=== PATIENT | male | born 1970 | race Caucasian/White ===

== ENCOUNTER 2018-07-08 08:12 | Inpatient (IN) | payer MEDICAID ==
[~2018-07-08] VITALS: Ht 182.9 cm; Wt 102.1 kg
--- NOTE | 2018-07-08 08:22 | NUR ---
Dr Witt at the bedside for MSE.
[2018-07-08] MEDS ORDERED: ONDANSETRON 4 MG/2 ML VIAL IV ONE ×2 (09:15→15:39)
[2018-07-08] MEDS ORDERED: METRONIDAZOLE 500 MG/NS 100 ML PIGGYBACK IV ONE (09:15)
[2018-07-08] MEDS ORDERED: MORPHINE SULFATE 2 MG/1 ML DISP.SYRIN IV ONE (09:15)
[2018-07-08] MEDS ORDERED: MORPHINE SULFATE 4 MG/1 ML DISP.SYRIN ONE ×2 (09:19→10:19)
[2018-07-08] MEDS ORDERED: ONDANSETRON 4 MG/2 ML VIAL ONE (09:19)
[2018-07-08] MEDS ORDERED: METRONIDAZOLE 500 MG/NS 100ML 100 ML IV ONE (09:20)
[2018-07-08 09:29] LABS: BASOPHILS % (AUTO) 0.3 % (0.0-2.0); CREATININE 1.2 mg/dL (0.6-1.3); HEMATOCRIT 47.6 % (36.7-47.1); HEMOGLOBIN 16.3 g/dL (12.5-16.3); LYMPHOCYTES # (AUTO) 0.5 K/uL (20.0-40.0); LYMPHOCYTES % (AUTO) 4.5 % (20.5-51.5); MEAN CORPUSCULAR HEMOGLOBIN 33.8 uug (23.8-33.4); MEAN CORPUSCULAR HGB CONC 34 g/dL (32.5-36.3); MEAN CORPUSCULAR VOLUME 98.4 fL (73.0-96.2); MONOCYTES # (AUTO) 0.4 K/uL (2.0-10.0); MONOCYTES % (AUTO) 3.5 % (0.0-11.0); NEUTROPHILS # (AUTO) 9.4 K/uL (1.8-8.9); NEUTROPHILS % (AUTO) 91.7 % (38.5-71.5); PLATELET COUNT (AUTO) 254 K/uL (152-348); POTASSIUM 3.9 mmol/L (3.5-5.1); RED BLOOD CELL COUNT(AUTO) 4.83 MIL/uL (4.06-5.63); WHITE BLOOD COUNT (AUTO) 10.3 K/uL (3.6-10.2)
[2018-07-08 09:35] LABS: BILIRUBIN,DIRECT 0.2 mg/dL (0.0-0.2); BILIRUBIN,TOTAL 0.8 mg/dL (0.2-1.0); TOTAL PROTEIN, SERUM 8.3 g/dL (6.4-8.2)
[2018-07-08] MEDS ORDERED: HYDROMORPHONE 1 MG/1 ML DISP.SYRIN ONE (09:37)
[2018-07-08] MEDS ORDERED: HYDROMORPHONE 1 MG/1 ML DISP.SYRIN IV ONE (09:45)
[2018-07-08] MEDS ORDERED: MORPHINE SULFATE 4 MG/1 ML DISP.SYRIN IV ONE (10:15)
[2018-07-08] MEDS ORDERED: KETOROLAC TROMETHAMINE 30 MG INJ IVP ONE (10:15)
[2018-07-08] MEDS ORDERED: KETOROLAC TROMETHAMINE 30 MG INJ ONE (10:19)
--- NOTE | 2018-07-08 10:46 | NUR ---
Patient is resting comfortably in bed with eyes closed, NAD noted at this time.
[2018-07-08 11:05] LABS: *BLOOD, URINE 3+ (NEGATIVE); *COLOR,URINE DARK YELLOW (YELLOW); *KETONES,URINE 3+ (NEGATIVE); *UROBILINOGEN,URINE 0.2 E.U./dl (NORMAL); LEUKOCYTE ESTERASE ,URINE NEGATIVE (NEGATIVE); NITRITE, URINE NEGATIVE (NEGATIVE); UGLUCOSE NEGATIVE (NEGATIVE)
[2018-07-08 11:12] LABS: *BILIRUBIN,URIN 1+ (NEGATIVE); *CLARITY,URINE SLIGHTLY HAZY (CLEAR)
[2018-07-08 11:16] LABS: BACTERIA,URINE NONE SEEN /HPF (NONE SEEN); RBC,URINE 20-50 /HPF (0-3); SQUAMOUS EPITHELIAL CELL,UR MODERATE /HPF (NONE SEEN); WBC,URINE 0-3 /HPF (0-3)
[2018-07-08 11:17] LABS: MUCUS,URINE MODERATE /LPF (0-FEW)
[2018-07-08 11:18] LABS: URINE AMORPHOUS URATE MODERATE /HPF
--- NOTE | 2018-07-08 11:25 | NUR ---
MRSA collected and sent to LAB, belonging list completed.
--- NOTE | 2018-07-08 11:30 | NUR ---
PT.CAME FROM ER Addendum: 07/12/18 at 0730 by CLAIR HERNANDEZ RN Amended: Links added.
--- NOTE | 2018-07-08 11:35 | NUR ---
RINA Medrano spoke to Perla Mcneil. Pt will be going to [facility] from ER.
--- NOTE | 2018-07-08 11:53 | NUR ---
Report given to [facility] team. Chart copied and sent w/ pt, as well as all belongings.
--- NOTE | 2018-07-08 11:55 | NUR ---
PT out of ER to [facility] accompained by [facility] team.
[2018-07-08] MEDS ORDERED: FENTANYL CITRATE 250 MCG/5 ML AMPUL ONE (12:16)
[2018-07-08] MEDS ORDERED: MIDAZOLAM HCL 2 MG/2 ML VIAL ONE (12:16)
[2018-07-08] MEDS ORDERED: SUCCINYLCHOLINE CHLORIDE 200 MG/10 ML VIAL ONE (12:17)
[2018-07-08] MEDS ORDERED: METOCLOPRAMIDE HCL 10 MG/2 ML VIAL ONE (12:17)
[2018-07-08 14:54] VITALS: BP 122/69
--- NOTE | 2018-07-08 14:54 | NUR ---
recieved patient from recovery room, made comfortable. denies acute abdominal pain when assess, no rectal bleeding noted. ch catheter with clear yellow urine noted. o2 4l nc for surgical comfort. iv #20 gauge left forearm patent, infusing well. water given as requested.
--- NOTE | 2018-07-08 15:05 | NUR ---
patient called, wanted to go home now. denies any abdominal pain ,discomfort, no rectal bleeding noted. abdomen tender to touch, no pain verbalized. Dr greco aware, leaving against medical advise. Patient made aware to return to hospital if unable to void and will have abdominal pain, nausea vomiting or rectal bleeding, verbalized understanding. appreciative of care.
[2018-07-08 15:15] VITALS: BP 130/71
[2018-07-08] MEDS ORDERED: PROPOFOL 200 MG/20 ML BOTTLE IV ONE (15:39)
[2018-07-08] MEDS ORDERED: IV LACTATED RINGERS SOLUTION 1,000 ML BAG IV ONE (15:39)
[2018-07-08] MEDS ORDERED: LIDOCAINE-MPF 2% 5 ML VIAL MC ONE (15:39)
--- NOTE | 2018-07-08 15:40 | NUR ---
left in stable condition against medical advise, voided after ch catheter removed. denies abdominal pain when even when palpated/ touched. iv removed, no acute bleeding noted .took 120 ml of apple juice, refused ryne cracker when offered. refused stated will eat at home. picked up by friend in front of hospital. appreciative of care.
== END 2018-07-08 15:40 | disposition left against medical advice (07) | DRG 254 ==
LOC: ER 08:12 → MED 12:40
PROVIDERS: ADMIT Nurse Practitioner Acute Care; ATTEND Surgery
PROC: 0DCP7ZZ Extirpation of Matter from Rectum, Via Natural or Artificial Opening (ICD-10-PCS; principal; 2018-07-08)
DX: T18.5XXA Foreign body in anus and rectum, initial encounter (principal); E78.5 Hyperlipidemia, unspecified; K21.9 Gastro-esophageal reflux disease without esophagitis; K62.5 Hemorrhage of anus and rectum; Y33.XXXA Other specified events, undetermined intent, initial encounter; Y93.89 Activity, other specified; Y92.019 Unspecified place in single-family (private) house as the place of occurrence of the external cause; Z88.1 Allergy status to other antibiotic agents; Z88.0 Allergy status to penicillin; R39.198 Other difficulties with micturition
CPT/HCPCS: 36415; 74021; 85025; A4649; A4663; G0378; J0330; J1170; J1885; J2250; J2270; J2405; J2765; J3010; J3490; J7120